=== PATIENT | male | born 1995 | race African-American/Black ===

== ENCOUNTER 2021-12-12 23:32 | Emergency (ER) | payer OTHER, SELFPAY ==
--- OUTSIDE RECORDS SUMMARY | 2021-12-12 23:36 | XMS REPORT | Continuity of Care Document ---
:1995 Author Organization [facility] Address [address] [place] [address] Care Team Providers Name Role Phone Julia Stanley Attending Clinician Lab, Fam Pob I Attending Clinician Unavailable Saul HITCHCOCK Attending Clinician JEY OSUNA Attending Clinician Unavailable Jey Osuna MD Attending Clinician Doctor Unassigned, Name Attending Clinician Unavailable Negro MARTINEZ Attending Clinician ALISHANE Attending Clinician Unavailable Pob1, [facility] Attending Clinician Unavailable Vince MÉNDEZ Attending Clinician Payers Payer Name Policy Type Policy Number Effective Date Expiration Date S ource Problems Condition Condition Condition Status Onset Resolution Last Treating Co mments Source Name Details Category Date Date Treatment Clinician Date Shift work Shift work Disease Active U nivers sleep sleep 9 ity of disorder disorder 00:00: [address] Allergies, Adverse Reactions, Alerts Allergy Allergy Status Severity Reaction(s) Onset Inactive Treating Comm ents Source Name Type Date Date Clinician NO KNOWN Drug Active Univers ALLERGIE Class ity of S [facility] Social History Social Habit Start Date Stop Date Quantity Comments Source Exposure to Not sure [facility] SARS-CoV-2 [facility] (event) Branch Alcohol intake 2019-08-14 2019-08-14 Current University 00:00:00 00:00:00 non-drinker of [facility] alcohol Branch (finding) Tobacco use and 2019-08-14 2019-08-14 Never used Universit y of exposure 00:00:00 00:00:00 [facility] Sex Assigned At [birth year] Universit y of 00:00:00 00:00:00 [facility] Smoking Status Start Date Stop Date Source Never smoker [facility] Medications Ordered Filled Start Stop Current Ordering Indication Dosage Frequency Signature Comments Components Source Medication Medication Date Date Medication? Clinician (SIG) Name Name LORazepam Yes [id number] Take 30 Univers 0.5 mg 7-16 minutes ity of tablet 00:00: before [place] [facility] Branch prn LORazepam 2020-0 Yes [id number] Take 30 Univers 0.5 mg 7-16 minutes ity of tablet 00:00: before [place] [facility] Medical aircraft Branch prn LORazepam 2020- Yes [id number] Take 30 Univers 0.5 mg 7-16 minutes ity of tablet 00:00: before [place] [facility] Medical aircraft Branch prn LORazepam Yes [id number] Take 30 Univers 0.5 mg 7-16 minutes ity of tablet 00:00: before [place] [facility] Medical aircraft Branch prn LORazepam 0 Yes [id number] Take 30 Univers 0.5 mg 7-16 minutes ity of tablet 00:00: before [place] [facility] Medical aircraft Branch prn LORazepam Yes [id number] Take 30 Univers 0.5 mg 7-16 minutes ity of tablet 00:00: before [place] [facility] Medical aircraft Branch prn ZOLPIDEM 10 2019- Yes [id number] 10mg TAKE 1 Univers mg tablet 8-17 TABLET BY ity o f 00:00: MOUTH AT [place] 00 BEDTIME Medical NEEDED FOR Branch INSOMNIA ZOLPIDEM 10 Yes [id number] 10mg TAKE 1 Univers mg tablet 8-17 TABLET BY ity o f 00:00: MOUTH AT [place] 00 BEDTIME Medical NEEDED FOR Branch INSOMNIA ZOLPIDEM 10 2020- No [id number] 10mg TAKE 1 Univers mg tablet 8-17 07-16 TABLET BY ity of 00:00: 00:00 MOUTH AT [place] 00 :00 BEDTIME Medical NEEDED FOR Branch INSOMNIA ZOLPIDEM 10 2020- No [id number] 10mg TAKE 1 Univers mg tablet 8-17 07-16 TABLET BY ity of 00:00: 00:00 MOUTH AT [place] 00 :00 BEDTIME Medical NEEDED FOR Branch INSOMNIA ZOLPIDEM 10 2020- No [id number] 10mg TAKE 1 Univers mg tablet 04-01-16 TABLET BY ity of 00:00: 00:00 MOUTH AT [place] 00 :00 BEDTIME Medical NEEDED FOR Branch INSOMNIA clindamycin 2019-0 Yes [id number] Apply to Univers (CLEOCIN T) 7-16 area(s) 2 ity of 1 % gel 00:00: (two) [place] 00 times Medical daily. Branch clindamycin Yes [id number] Apply to Univers (CLEOCIN T) 7-16 area(s) 2 ity of 1 % gel 00:00: (two) [place] 00 times Medical daily. Branch clindamycin Yes [id number] Apply to Univers (CLEOCIN T) 7-16 area(s) 2 ity of 1 % gel 00:00: (two) [place] 00 times Medical daily. Branch clindamycin 2020- No [id number] Apply to Univers (CLEOCIN T) 7-16 -16 area(s) 2 it y of 1 % gel 00:00: 00:00 (two) [place] 00 :00 times Medical daily. Branch clindamycin 2020- No [id number] Apply to Univers (CLEOCIN T) 7-16 -16 area(s) 2 it y of 1 % gel 00:00: 00:00 (two) [place] 00 :00 times Medical daily. Branch clindamycin 2020- No [id number] Apply to Univers (CLEOCIN T) 7-16 -16 area(s) 2 it y of 1 % gel 00:00: 00:00 (two) [place] 00 :00 times Medical daily. Branch dicyclomine 2020- No 10mg Take 10 mg Univers 10 mg 5-11 05-11 by mouth 3 ity of capsule 16:52: 00:00 (three) [place] 55 :00 times Medical daily as Branch needed for Abdominal pain. omeprazole 2020- No 40mg Take 40 mg Univers 40 mg 5-11 05-11 by mouth ity of capsule 16:52: 00:00 daily. [place] 55 :00 Medical Branch omeprazole 2019-0 Yes [id number] 40mg Take 1 Univers 40 mg 5-11 capsule by ity of capsule 00:00: mouth [place] 00 daily. Medical Branch dicyclomine 2019-0 Yes [id number] 10mg Take 1 Univers 10 mg 5-11 capsule by ity of capsule 00:00: mouth 3 [place] 00 (three) Medical times Branch daily as needed for Abdominal pain. omeprazole 2020-0 Yes [id number] 40mg Take 1 Univers 40 mg 5-11 capsule by ity of capsule 00:00: mouth [place] 00 daily. Medical Branch dicyclomine 2020-0 Yes [id number] 10mg Take 1 Univers 10 mg 5-11 capsule by ity of capsule 00:00: mouth 3 [place] 00 (three) Medical times Branch daily as needed for Abdominal pain. omeprazole 2020-0 Yes [id number] 40mg Take 1 Univers 40 mg 5-11 capsule by ity of capsule 00:00: mouth [place] 00 daily. Medical Branch dicyclomine 2020-0 Yes [id number] 10mg Take 1 Univers 10 mg 5-11 capsule by ity of capsule 00:00: mouth 3 [place] 00 (three) Medical times Branch daily as needed for Abdominal pain. omeprazole 2020-0 Yes [id number] 40mg Take 1 Univers 40 mg 5-11 capsule by ity of capsule 00:00: mouth [place] 00 daily. Medical Branch dicyclomine 2020-0 Yes [id number] 10mg Take 1 Univers 10 mg 5-11 capsule by ity of capsule 00:00: mouth 3 [place] 00 (three) Medical times Branch daily as needed for Abdominal pain. omeprazole 2020-0 2020- No [id number] 40mg Take 1 Univers 40 mg 5-11 07-16 capsule by ity of capsule 00:00: 00:00 mouth [place] 00 :00 daily. Medical Branch dicyclomine 2020-0 2020- No [id number] 10mg Take 1 Univers 10 mg 5-11 07-16 capsule by ity of capsule 00:00: 00:00 mouth 3 [place] 00 :00 (three) Medical times Branch daily as needed for Abdominal pain. zolpidem 2018-08 Yes [id number] 10mg Take 1 Univers mg tablet 2-30 tablet by ity o f 00:00: mouth at [place] 00 bedtime as Medical needed for Branch Insomnia. zolpidem 2018-08 Yes [id number] 10mg Take 1 Univers mg tablet 2-30 tablet by ity o f 00:00: mouth at [place] 00 bedtime as Medical needed for Branch Insomnia. zolpidem 2018-08 Yes [id number] 10mg Take 1 Univers mg tablet 2-30 tablet by ity o f 00:00: mouth at [place] 00 bedtime as Medical needed for Branch Insomnia. zolpidem 2018-08 Yes [id number] 10mg Take 1 Univers mg tablet 2-30 tablet by ity o f 00:00: mouth at [place] 00 bedtime as Medical needed for Branch Insomnia. zolpidem 2018-08 Yes [id number] 10mg Take 1 Univers mg tablet 2-30 tablet by ity o f 00:00: mouth at [place] 00 bedtime as Medical needed for Branch Insomnia. zolpidem 2018-08 Yes [id number] 10mg Take 1 Univers mg tablet 2-30 tablet by ity o f 00:00: mouth at [place] 00 bedtime as Medical needed for Branch Insomnia. zolpidem 2018-08 2020- No [id number] 10mg Take 1 Univers mg tablet 2-30 07-16 tablet by ity of 00:00: 00:00 mouth at [place] 00 :00 bedtime as Medical needed for Branch Insomnia. zolpidem Yes [id number] 10mg Take 1 Univers mg tablet 8-13 tablet by ity o f 00:00: mouth at [place] 00 bedtime as Medical needed for Branch Insomnia. zolpidem 2019- No [id number] 10mg Take 1 Univers mg tablet 7- 08-13 tablet by ity of 00:00: 00:00 mouth at [place] 00 :00 bedtime as Medical needed for Branch Insomnia. Vital Signs Vital Name Observation Time Observation Value Comments Source Systolic blood 2021-02-28 18:10:00 140 mm[Hg] [facility] [place] Diastolic blood 2021-02-28 18:10:00 80 mm[Hg] [facility] Systolic blood 2021-02-28 15:32:00 143 mm[Hg] [facility] Diastolic blood 2021-02-28 15:32:00 80 mm[Hg] [facility] Heart rate 2021-02-28 15:32:00 72 /min [facility] Body height 2021-02-28 15:32:00 177.8 cm [facility] Body weight 2021-02-28 15:32:00 60.782 kg [facility] BMI 2021-02-28 15:32:00 19.23 kg/m2 [facility] Procedures Procedure Date / Time Performed Performing Clinician [facility] e ASSIGNMENT OF BENEFITS 2021-02-28 15:26:32 Doctor Unassigned, No [facility] Encounters Start End Encounter Admission Attending Care Care Encounter Source Date/Time Date/Time Type Type Clinicians Facility Department ID 2021-03-03 2021-03-03 Letter [facility] [id number] Univers 00:00:00 00:00:00 (Out) [facility] [id number] ity of [place] [id number] Valeriano as Professio [phone] Nd dical [address] Office [facility] 2021-03-02 2021-03-02 Telephone [facility] [id number] Univers 00:00:00 00:00:00 [facility] [id number] ity of [place] [id number] [place] as Professio [phone] Nd dical nal [address] [place] [address] Office [facility] 2021-03-01 2021-03-01 Laboratory Lab, Adc Fam Pob I [facility] 1.2. [id number] Univers 09:00:12 09:20:12 Only Katya Hughes [facility] [id number] ity of [place] [id number] [place] as Professio [phone] [address] Office [facility] 2021-03-01 2021-03-01 Outpatient R [facility] [id number] Univers 09:00:00 09:00:[id number] [facility] 2021-03-01 2021-03-01 Outpatient R [facility] [id number] Univers 09:00:00 09:00:[address] [facility] 2021-02-28 2021-02-28 Outpatient Jessica OSUNA [facility] [id number] Univers 10:45:00 10:45:00 CORTEZ [id number] ity [facility] 2021-02-28 2021-02-28 Outpatient [facility] [id number] Univers 10:45:00 10:45:00 CORTEZ y [facility] 2021-02-28 2021-02-28 Office [facility] [id number] Univers 10:26:43 10:43:30 Visit Cortez [facility] [id number] it y of [place] [id number] [place] as Professio [phone] [address] 2021-02-28 2021-02-28 Orders Doctor PAPA 1..840.114 [id number] Univers 00:00:00 00:00:00 Only Unassigned, BOONE [id number] ity of [place] [facility] [id number] [place] as [phone] [address] 2020-03-29 2020-03-29 Refill [facility] [id number] Univers 00:00:00 00:00:00 [facility] [id number] it y of [place] [id number] [place] as Professio [phone] [address] 2020-02-29 2020-02-29 Outpatient R [facility] [id number] Univers 14:00:00 14:00:00 CORTEZ [id number] [facility] 2020-02-29 2020-02-29 Outpatient R [facility] [id number] Univers 14:00:00 14:00:00 [facility] 2020-02-29 2020-02-29 Telemedici [facility] [id number] Univers 08:36:37 08:51:37 ne Visit Cortez Nicolas [id number] ity of [id number] Profess[place] [phone] Nd dic[address] 2020-02-21 2020-02-21 Laboratory Lab, Adc Fam Pob I [facility] 1.. 840.114 [id number] Univers 10:20:00 10:40:00 Only [facility] [id number] ity of [place] [id number] [place] as Professio [phone] [address] Office [facility] 2020-02-21 2020-02-21 Outpatient R [facility] [id number] Univers 10:20:00 10:20:[address] [facility] 2020-02-21 2020-02-21 Outpatient R NEGRO [facility] [id number] Univers 10:20:00 10:20:[address] [facility] 2020-02-13 2020-02-13 Outpatient R [facility] [id number] Univers 16:00:00 16:00:[id number] [facility] 2020-02-13 2020-02-13 Outpatient R [facility] [id number] Univers 16:00:00 16:00:00 ity [facility] 2020-02-13 2020-02-13 Laboratory Lab, Adc Fam Pob I [facility] 1.2. [id number] [id number] Univers 15:32:52 15:52:52 Only [facility]elyn [facility] [id number] ity of [place] [id number] [place] as Professio [phone] [address] Office [facility] 2020-02-12 2020-02-12 Telephone Pob1, Acute [facility] [id number] Univers 00:00:00 00:00:00 [facility] [id number] ity of [place] [id number] [place] as Professio [phone] [address] Office [facility] 2019-12-25 2019-12-25 Outpatient R [facility] [id number] Univers 11:30:00 11:30:00 CORTEZ [id number] ity [facility] 2019-12-25 2019-12-25 Outpatient R [facility] [id number] Univers 11:30:00 11:30:00 CORTEZ [facility] 2019-12-25 2019-12-25 [facility] [id number] Univers 07:55:35 08:10:35 ne Visit [facility] [id number] it[id number] [phone] Nd dical nal 044 [facility] 2019-12-22 2019-12-22 [facility] 1.2.840.114 [id number] Univers 00:00:00 00:00:00 [facility] [id number] it y of [place] [id number] [place] as Professio [phone] Nd dical nal [address] [place] Office [facility] 2019-12-18 2019-12-18 [facility] [id number] Univers 00:00:00 00:00:00 [facility] [id number] it y of Surgical [id number] [place] as Specialti [phone] Nd dical es 370 [facility] 2019-03-27 2019-03-27 Refill [facility] [id number] Univers 00:00:00 00:00:00 [facility] [id number] it y of [place] [id number] [place] as Professio [phone] Nd dical nal [address] [place] Office [facility] Results This patient has no known results.
[2021-12-13] MEDS ORDERED: IBUPROFEN 200 MG TAB PO ONE (01:21)
--- NOTE | 2021-12-13 03:54 | ER ---
Nurse's Notes [facility] Name: Luís Llanos Age: 26 yrs Sex: Male : 1995 Arrival Date: 12/12/2021 Time: 23:39 Bed 20 Private MD: Diagnosis: Musculoskeletal pain Presentation: 12/13 00:30 Chief complaint: Patient states: States was lifting weights on and then on ll3 Wednesday right arm started hurting, states pain is 8/10. Coronavirus screen: Vaccine status: Patient reports receiving the 2nd dose of the covid vaccine. At this time, the client does not indicate any symptoms associated with coronavirus-19. Ebola Screen: No symptoms or risks identified at this time. Initial Sepsis Screen: Does the patient meet any 2 criteria? No. Patient's initial sepsis screen is negative. Does the patient have a suspected source of infection? No. Patient's initial sepsis screen is negative. Risk Assessment: Do you want to hurt yourself or someone else? Patient reports no desire to harm self or others. Onset of symptoms was December 12, 2021. 00:30 Method Of Arrival: Ambulatory ll3 00:30 Acuity: EARLE 3 ll3 Triage Assessment: 00:32 General: Appears uncomfortable, Behavior is calm, cooperative. Pain: Complains of pain ll3 in right arm. Musculoskeletal: Circulation, motion, and sensation intact. Range of motion: limited in right elbow Reports pain in right arm since Wednesday . Pain is 8 out of 10 on a pain scale. Injury Description: Lifting weights. Historical: - Allergies: 00:32 No Known Allergies; ll3 - Home Meds: 00:32 None [Active]; ll3 - PMHx: 00:32 None; ll3 - PSHx: 00:32 None; ll3 - Immunization history:: Client reports receiving the 2nd dose of the Covid vaccine. - Social history:: Smoking status: Patient denies any tobacco usage or history of. Screenin:47 Abuse screen: Denies threats or abuse. Denies injuries from another. Nutritional luis enrique screening: No deficits noted. Tuberculosis screening: No symptoms or risk factors identified. Fall Risk None identified. Assessment: 00:26 Reassessment: The pt was brought to room #20 at this time and the triage nurse is luis enrique placing them on the monitor. 03:26 Reassessment: Awaiting dispo. luis enrique Vital Signs: 00:30 BP 135 / 96; Pulse 68; Resp 16; Temp 97.7(TE); Pulse Ox 100% on R/A; Weight 58.97 kg ll3 (R); Height 5 ft. 10 in. (177.80 cm) (R); Pain 8/10; 00:42 BP 115 / 79; Pulse 61; Resp 16; Pulse Ox 100% on R/A; luis enrique 04:00 BP 124 / 85; Pulse 66; Resp 18; Pulse Ox 100% on R/A; Pain 0/10; luis enrique 00:30 Body Mass Index 18.65 (58.97 kg, 177.80 cm) ll3 ED Course: 12/12 23:39 Patient arrived in ED. paula 12/13 00:26 Brandi Correia, RN is Primary Nurse. luis enrique 00:32 Triage completed. ll3 00:32 Arm band placed on Patient placed in an exam room, on a stretcher, on pulse oximetry. ll3 00:45 Ortiz Guardado MD is Attending Physician. 7 00:47 Bed in low position. Call light in reach. Adult w/ patient. luis enrique 00:47 No provider procedures requiring assistance completed. luis enrique 01:44 Humerus Right XRAY In Process Unspecified. EDMS 01:44 Elbow Right 2 View XRAY In Process Unspecified. EDMS 04:03 Patient did not have IV access during this emergency room visit. luis enrique Administered Medications: 01:20 Drug: Ibuprofen 600 mg Route: PO; luis enrique 01:52 Follow up: Response: No adverse reaction; Pain is decreased luis enrique Outcome: 00:47 Condition: stable luis enrique 03:53 Discharge ordered by . [facility] 04:02 Discharged to home ambulatory, with family. luis enrique 04:02 Discharge instructions given to patient, Instructed on discharge instructions, follow up and referral plans. medication usage, Demonstrated understanding of instructions, follow-up care, medications, Prescriptions given X 1. 04:03 Patient left the ED. luis enrique Signatures: Dispatcher [employer] Ortiz Church MD MD Alejo Landeros RN RN 3 Brandi Correia RN RN bo Zapata, Kelly kz
--- NOTE | 2021-12-13 03:54 | EDPHYS ---
Physician Documentation [facility] Name: Luís Llanos Age: 26 yrs Sex: Male : 1995 Arrival Date: 12/12/2021 Time: 23:39 Bed 20 Private MD: SUSANNA Physician Ortiz Guardado HPI: 12/13 01:30 This 26 yrs old Black Male presents to ER via Ambulatory with complaints of Arm Injury mh7 - Right. 01:30 The patient or guardian complains of pain, that is acute. The complaints affect the mh7 right antecubital area. Context: The problem was sustained at a gym, resulted from lifting or pulling, a heavy object, 145 lbs weights. Onset: The symptoms/episode began/occurred yesterday. 01:30 Treatment prior to arrival includes: no previous treatment. Modifying factors: The mh7 symptoms are alleviated by remaining still, the symptoms are aggravated by movement, lifting weight. Associated signs and symptoms: Pertinent negatives: decreased range of motion, deformity, erythema, fever, nausea, numbness, swelling, tingling, vomiting, warmth, weakness. Severity of symptoms: At their worst the symptoms were moderate, yesterday, in the emergency department the symptoms have improved, moderately. Historical: - Allergies: 00:32 No Known Allergies; ll3 - Home Meds: 00:32 None [Active]; ll3 - PMHx: 00:32 None; ll3 - PSHx: 00:32 None; ll3 - Immunization history:: Client reports receiving the 2nd dose of the Covid vaccine. - Social history:: Smoking status: Patient denies any tobacco usage or history of. ROS: 01:30 Constitutional: Negative for fever, chills, and weight loss, Eyes: Negative for injury, mh7 pain, redness, and discharge, ENT: Negative for injury, pain, and discharge, Neck: Negative for injury, pain, and swelling, Cardiovascular: Negative for chest pain, palpitations, and edema, Respiratory: Negative for shortness of breath, cough, wheezing, and pleuritic chest pain, Abdomen/GI: Negative for abdominal pain, nausea, vomiting, diarrhea, and constipation, Back: Negative for injury and pain, : Negative for injury, bleeding, discharge, and swelling, Skin: Negative for injury, rash, and discoloration, Neuro: Negative for headache, weakness, numbness, tingling, and seizure, Psych: Negative for depression, anxiety, suicide ideation, homicidal ideation, and hallucinations, Allergy/Immunology: Negative for hives, rash, and allergies, Endocrine: Negative for neck swelling, polydipsia, polyuria, polyphagia, and marked weight changes, Hematologic/Lymphatic: Negative for swollen nodes, abnormal bleeding, and unusual bruising. Exam: 01:30 Constitutional: This is a well developed, well nourished patient who is awake, alert, mh7 and in no acute distress. Head/Face: Normocephalic, atraumatic. Eyes: Pupils equal round and reactive to light, extra-ocular motions intact. Lids and lashes normal. Conjunctiva and sclera are non-icteric and not injected. Cornea within normal limits. Periorbital areas with no swelling, redness, or edema. Neck: Trachea midline, no thyromegaly or masses palpated, and no cervical lymphadenopathy. Supple, full range of motion without nuchal rigidity, or vertebral point tenderness. No Meningismus. Chest/axilla: Normal chest wall appearance and motion. Nontender with no deformity. No lesions are appreciated. Cardiovascular: Regular rate and rhythm with a normal S1 and S2. No gallops, murmurs, or rubs. Normal PMI, no JVD. No pulse deficits. Respiratory: Lungs have equal breath sounds bilaterally, clear to auscultation and percussion. No rales, rhonchi or wheezes noted. No increased work of breathing, no retractions or nasal flaring. Abdomen/GI: Soft, non-tender, with normal bowel sounds. No distension or tympany. No guarding or rebound. No evidence of tenderness throughout. Back: No spinal tenderness. No costovertebral tenderness. Full range of motion. Skin: Warm, dry with normal turgor. Normal color with no rashes, no lesions, and no evidence of cellulitis. 01:30 Neuro: Awake and alert, GCS 15, oriented to person, place, time, and situation. Cranial nerves II-XII grossly intact. Motor strength 5/5 in all extremities. Sensory grossly intact. Cerebellar exam normal. Normal gait. Psych: Awake, alert, with orientation to person, place and time. Behavior, mood, and affect are within normal limits. 01:30 Musculoskeletal/extremity: Extremities: noted in the right antecubital area and right arm biceps: ROM: intact in all extremities, Circulation is intact in all extremities. Sensation intact. Compartment Syndrome exam of affected extremity: is normal. no numbness, no tingling, no sensation deficit, no palor, no weak pulses, Joints: All joints appear normal with full range of motion. Weight bearing: able to fully bear weight, without difficulty, Tendon exam: specific tendon testing normal through active and passive range of motion DVT Exam: no swelling, negative Homans' sign noted on exam, no appreciated bluish discoloration, no erythema, no increased warmth. Vital Signs: 00:30 BP 135 / 96; Pulse 68; Resp 16; Temp 97.7(TE); Pulse Ox 100% on R/A; Weight 58.97 kg ll3 (R); Height 5 ft. 10 in. (177.80 cm) (R); Pain 8/10; 00:42 BP 115 / 79; Pulse 61; Resp 16; Pulse Ox 100% on R/A; luis enrique 04:00 BP 124 / 85; Pulse 66; Resp 18; Pulse Ox 100% on R/A; Pain 0/10; luis enrique 00:30 Body Mass Index 18.65 (58.97 kg, 177.80 cm) ll3 MDM: 03:51 Differential diagnosis: closed fracture, contusion, abrasion, tendonitis. Data [facility] reviewed: vital signs, nurses notes, radiologic studies, plain films. Data interpreted: Pulse oximetry: on room air is 100 %. Interpretation: normal. Counseling: I had a detailed discussion with the patient and/or guardian regarding: the historical points, exam findings, and any diagnostic results supporting the discharge/admit diagnosis, radiology results, the need for outpatient follow up, to return to the emergency department if symptoms worsen or persist or if there are any questions or concerns that arise at home. Response to treatment: the patient's symptoms have resolved after treatment, the patient's blood pressure is in an acceptable range, mental status has returned to baseline, the patient no longer shows bradycardia, the patient is not short of breath, the patient is not tachycardic, the patient's pain is gone, the patient's temperature has normalized. 03:53 Patient medically screened. [facility] 12/13 01:03 Order name: Humerus Right XRAY [facility] 12/13 01:03 Order name: Elbow Right 2 View XRAY [facility] Administered Medications: 01:20 Drug: Ibuprofen 600 mg Route: PO; luis enrique 01:52 Follow up: Response: No adverse reaction; Pain is decreased luis enrique Disposition Summary: 12/13/21 03:53 Discharge Ordered Location: Home [facility] Problem: new [facility] Symptoms: have improved [facility] Condition: Stable [facility] Diagnosis - Musculoskeletal pain [facility] Followup: [facility] - With: Private Physician - When: 1 - 2 days - Reason: Worsening of condition, Recheck today's complaints, Continuance of care, Re-evaluation by your physician Discharge Instructions: - Discharge Summary Sheet [facility] - Musculoskeletal Pain [facility] Forms: - Medication Reconciliation Form [facility] - Thank You Letter [facility] - Antibiotic Education [facility] - Prescription Opioid Use [facility] Prescriptions: - Ibuprofen 600 mg Oral Tablet - take 1 tablet by ORAL route every 8 hours As needed take with food; 15 tablet; [facility] Refills: 0, Product Selection Permitted Signatures: Dispatcher [employer] Ortiz Church MD MD [facility] Alejo العراقي RN RN 3 Brandi Correia RN RN luis enrique
[2021-12-13 04:19] VITALS: TEMP 97.7; O2SAT 100
[2021-12-13 04:22] VITALS: BP 124/85
--- NOTE | 2021-12-13 18:13 | RAD REPORT ---
EXAM DESCRIPTION: RAD - Humerus Right - 12/13/2021 1:42 am CLINICAL HISTORY: 26 years, Male, PAIN Humerus Right COMPARISON: None. FINDINGS: 2 X-ray views of the right humerus (frontal and lateral views) were performed. No acute bony injuries were demonstrated. No gross articular or soft tissue abnormality is identifi ed. There are no gross intraosseous lesions. No periosteal reaction were seen. IMPRESSION: Unremarkable right humerus x-rays. Electronically signed by: Pernell Gan MD 12/13/2021 1:58 AM CDT Due to temporary technical issues with the PACS/Fluency reporting system, reports are being signed by the in house radiologists without review as a courtesy to insure prompt reporting. The interpreting radiologist is fully responsible for the content of the report.
--- NOTE | 2021-12-13 18:20 | RAD REPORT ---
EXAM DESCRIPTION: RAD - Elbow Right 2 View - 12/13/2021 1:42 am CLINICAL HISTORY: 26 years, Male, PAINElbow Right 2 View COMPARISON: None. FINDINGS: 2 X-ray views of the right elbow (frontal and lateral views) were performed. No acute luis enrique [place] injuries were demonstrated. No gross articular or soft tissue abnormality is identified. There are no gross intraosseous lesions. No periosteal reaction were seen. IMPRESSION: Unremarkable right elbow. Electronically signed by: Pernell Gan MD 12/13/2021 2:00 AM CDT Due to temporary technical issues with the PACS/Fluency reporting system, reports are being signed by the in house radiologists without review as a courtesy to insure prompt reporting. The interpreting radiologist is fully responsible for the content of the report.
== END 2021-12-13 04:03 | disposition home or self-care (01) ==
LOC: ER 23:32
DX: M79.601 Pain in right arm (principal)
CPT/HCPCS: 99284